=== PATIENT | female | born 1955 | race Caucasian/White ===

== ENCOUNTER 2025-04-12 07:53 | Emergency (ER) | payer OTHER, MEDICARE ==
[2025-04-12 08:17] VITALS: RESP 20; TEMP 98.4; BMI 19.5
[2025-04-12] MEDS: SODIUM CHLORIDE 0.9% 500 ML INFUS.BAG IV ONE (08:45)
[2025-04-12 08:59] LABS: HEMATOCRIT 35.8 % (34.1-44.9); HEMOGLOBIN 12.1 g/dL (11.2-15.7); MCHC 33.8 g/dl (32.2-35.5); MEAN CELL VOLUME 96.8 fl (79.4-94.8); MEAN PLT VOLUME 10.1 fl (9.4-12.3); PLATELET COUNT 238 x10^3/uL (182-369); RDW 13.5 % (12.4-16.4)
[2025-04-12 09:21] LABS: INR 0.89 (0.83-1.09); PROTHROMBIN TIME (PATIENT) 9.9 SEC (9.7-13.0)
[2025-04-12 09:23] LABS: ALBUMIN 4.7 g/dl (3.4-5.0); CALCIUM 9.7 mg/dl (8.5-10.1); CREATININE 0.7 mg/dl (0.6-1.3); POTASSIUM 4.1 mmol/L (3.5-5.1); TOT PROT 7.1 g/dl (6.4-8.2)
[2025-04-12 09:24] LABS: ACTIVATED PTT 28.5 SECONDS (25.2-36.5)
[2025-04-12 10:13] VITALS: BP 165/73; PULSE 75
[2025-04-12 15:19] LABS: HCV DIAGNOSTIC IN-HOUSE W/RFLX NON-REACTIVE (NONREACTIVE)
[2025-04-14 21:20] LABS: HIV INTERPRETATION NEGATIVE (NEGATIVE)
== END 2025-04-12 12:18 | disposition home or self-care (01) ==
LOC: FER 07:53
DX: S01.511A Laceration without foreign body of lip, initial encounter (principal); S05.11XA Contusion of eyeball and orbital tissues, right eye, initial encounter; S05.12XA Contusion of eyeball and orbital tissues, left eye, initial encounter; R42 Dizziness and giddiness; W18.30XA Fall on same level, unspecified, initial encounter; Y92.019 Unspecified place in single-family (private) house as the place of occurrence of the external cause
CPT/HCPCS: 36415; 70450-TC; 70486-TC; 80053; 81003; 81015; 84484; 85027; 85610; 85730; 86803; 87389; 93005; 99285-25